=== PATIENT | male | born 1955 | race Caucasian/White ===

== ENCOUNTER 2019-03-11 11:41 | Day surgery (SDC) | payer BC, OTHER ==
[2019-03-11] MEDS ORDERED: LIDOCAINE 2% (SDV) 5 ML INJ (13:32)
[2019-03-11] MEDS ORDERED: PROPOFOL 40 ML (13:32)
[2019-03-11] MEDS ORDERED: EPHEDrine 25 MG/5 ML SYG (13:50)
[2019-03-11] MEDS ORDERED: ONDANSETRON 4 MG INJ IV (14:00)
== END 2019-03-11 17:00 | disposition home or self-care (01) ==
LOC: GIL 11:41
DX: Z12.11 Encounter for screening for malignant neoplasm of colon (principal); D12.8 Benign neoplasm of rectum; K57.30 Diverticulosis of large intestine without perforation or abscess without bleeding; I10 Essential (primary) hypertension
CPT/HCPCS: 45385; 88305